=== PATIENT | male | born 1955 | race Caucasian/White ===

== ENCOUNTER 2019-12-23 12:29 | Inpatient (IN) | payer OTHER ==
[~2019-12-23] VITALS: Ht 182.9 cm; Wt 91.6 kg
--- NOTE | ~2019-12-23 | O ---
[facility] [place] [address] OPERATIVE REPORT Name: MARLO QUINTERO Room #: 217-P ADM IN M.R.#: [id number] Admission: 12/23/19 Attend Phys: Santos Coppola MD Discharge: Date of : 59 Report #: [id number] THIS REPORT FOR: cc: Dee Nick MD, Dee Dubon,Bneoit Tai MD ~ CC: Dee Coppola DATE OF SERVICE: 12/31/2019 PREOPERATIVE DIAGNOSES: Right foot gangrene, status post partial foot amputation, nonhealing wounds and status post revascularization of the right lower extremity. POSTOPERATIVE DIAGNOSES: Right foot gangrene, status post partial foot amputation, nonhealing wounds and status post revascularization of the right lower extremity. PROCEDURE PERFORMED: Right below-knee amputation. SURGEON: Benoit Dubon MD POLYSOM TECH: Elyse Sarah PA-C. ANESTHESIA: General. FLUIDS: 500 mL crystalloid. ESTIMATED BLOOD LOSS: Approximately 50 mL. SPECIMENS: Right lower extremity, below the knee. DESCRIPTION OF PROCEDURE: After proper identification of the patient and operative site in preoperative holding area, the operative site was signed by myself. The patient was initially seen by my partner, Dr. Miguel Angel Peralta and his physician retail assistant store manager, Betty Romero. Treatment plan was discussed. The patient is consented to a right below-knee amputation and due to OR availability, I was able to perform the procedure sooner for the patient. Questions were encouraged, all were answered. The expected postoperative course and fitting for a stump flight instructor, temporary prosthesis and eventual permanent prosthesis were reviewed with the patient. He felt comfortable proceeding with the above and wished to proceed. The patient was brought back to the operative suite after induction of satisfactory general anesthesia per LMA. Tourniquet was applied to the right upper thigh. The limb was sterilely prepped and draped in the usual manner. Extensive gangrenous changes were noted about the foot with [address] [address] OPERATIVE REPORT Name: MARLO QUINTERO Room #: 217-P [facility] IN ..#: [id number] Admission: 12/23/19 Attend Phys: Santos Coppola MD Discharge: Date of : 59 Report #: [id number] extensive skin loss below the ankle, nonhealing wounds were noted, and the skin incision was planned for the below-knee amputation. Approximately 5 inches below the level of the joint, anterior and posteriorly based fishmouth flaps were planned. The skin in this region appeared to be amenable to primary closure. The limb was elevated and exsanguinated by gravity, tourniquet was inflated. After the appropriate timeout, full-thickness skin flaps were developed. Anterolateral musculature was divided first; neurovascular structures were tied, ligated and cauterized. The nervous structures were retracted distally and sectioned proximally. The tibial osteotomy was performed with an anterior bevel, edges were chamfered and rasped and then the fibula was cut approximately 1.5 cm proximal to the tibia. This was bevelled as well. Sharp edges were removed. Posterior base musculature was divided and again neurovascular structures were identified, tied and cauterized. Soft tissues were contoured to provide a good stump for his prosthesis, and the tourniquet was deflated. Several small vessels required cauterization. Otherwise, there was excellent hemostasis with good punctate bleeding from the muscles and this appeared to be a good level amenable to healing. A [place] drain was placed deep. Fascia was closed with #1 and then 0 Vicryl, 2-0 Vicryl for the subcutaneous tissues, final skin closure was with 2-0 nylon in an interrupted manner with favian. Drain was pulled to ensure that it could be removed and a sterile compressive dressing and posterior splint were applied. At the time of dictation, he was still in the operative suite with anticipated discharge to the recovery room in stable condition. By: 1134 [id number] Benoit Dubon MD /barbara
[2019-12-23 16:00] VITALS: BP 99/44
[2019-12-23] MEDS ORDERED: VENTOLIN HFA 1818 GM INH (16:33)
[2019-12-23] MEDS ORDERED: BUMEX2 MG PO (16:36)
[2019-12-23] MEDS ORDERED: CALCIUM CARBON500 MG PO (16:38)
[2019-12-23] MEDS ORDERED: VITAMIN D31250 MCG PO (16:45)
[2019-12-23] MEDS ORDERED: PLAVIX 75 MG TA75 MG PO (16:46)
[2019-12-23] MEDS ORDERED: DIALYVITE 3,001 EACH PO (16:47)
[2019-12-23] MEDS ORDERED: NEURONTIN 300M300 M2 PO (16:48)
[2019-12-23] MEDS ORDERED: HUMULIN 70100 UNIT/2 SUBQ (16:49)
[2019-12-23] MEDS ORDERED: HYDROCODON-ACE1 EAC7 PO (16:50)
[2019-12-23] MEDS ORDERED: LEVO-T100 MCG PO (16:53)
[2019-12-23] MEDS ORDERED: DULERA 100 MCG/13 GM INH (16:57)
[2019-12-23] MEDS ORDERED: RENVELA0.8 GM PO (16:58)
[2019-12-23] MEDS ORDERED: SIMVASTATIN80 MG PO (16:59)
--- NOTE | 2019-12-23 19:34 | NUR ---
ASSUMED PT CARE THIS AFTERNOON UPON ADMISSION. PT BLOOD PRESSURE LOW, PAGED, AND MULTIPLE MESSAGES SENT REGARDING LOW BP. NO RESPONSE FROM . DANYELL NURSE ENDORSED. PT REFUSED REPORTING PAST MEDICAL HX, NIGHT NURSE MADE AWARE. NO ORDERS DURING THE SHIFT FOR PT MADE. DANYELL NURSE ENDORSED.
[2019-12-23 20:26] VITALS: BP 148/111
[2019-12-24 06:22] LABS: APTT 44.8 Seconds (24.5-32.8); INR 1.2; PROTIME 12.7 Seconds (9.3-11.4)
[2019-12-24 06:35] LABS: MCH 30.5 pg (26.0-34.0); MCHC 32.4 g/dL (28.0-37.0); MCV 94.1 fL (80.0-100.0); PLATELET COUNT 432 thou/uL (150-400); RBC 3.29 mil/uL (4.50-6.00); RDW 15.2 % (10.5-14.5); WBC 21.5 thou/uL (4.0-11.0)
[2019-12-24 07:07] LABS: ALBUMIN 1.6 g/dL (3.4-5.0); CALCIUM 7.9 mg/dL (8.5-10.1); CREATININE 10.9 mg/dL (0.7-1.3); MAGNESIUM 2.8 mg/dL (1.8-2.4); POTASSIUM 5.3 mmol/L (3.5-5.1); TOTAL BILIRUBIN 1.4 mg/dL (0.2-1.0); TOTAL PROTEIN 6.4 g/dL (6.4-8.2)
--- NOTE | 2019-12-24 07:42 | NUR ---
Pt. rested quietly at intervals during the night when checked on during frequent rounds. He did c/o some right shoulder pain and po pain med given (see emar) with some relief noted. Bed alarm is on.
--- NOTE | 2019-12-24 07:42 | EKG ---
[facility] [place] [address] ELECTROCARDIOGRAM REPORT Name: MARLO QUINTERO Room #: 463- ADM IN M.R.#: [id number] Admission: 12/23/19 Attend Phys: Santos Coppola MD Discharge: Date of : 59 Report #: [id number] THIS REPORT FOR: cc: Dee Nick MD, Allison Louise MD Lundgren,Maurice Mercedes MD [facility] ~ THIS REPORT FOR: //name// [facility] Test Date: 2019-12-23 Test Time: 19:29:35 Pat Name: MARLO QUINTERO Department: Room: 463 Gender: M Commutator Operator: Alva SILVA : 1955 Requested By: Santos Coppola Order Number: [id number] MD: Maurice Hurley Measurements Intervals [place] Rate: 60 P: OK: 199 QRS: -66 QRSD: 167 T: 82 QT: 539 QTc: 539 Interpretive Statements A-V dual-paced rhythm with some inhibition No further analysis attempted due to paced rhythm Baseline wander in lead(s) V1 No previous ECG available for comparison Electronically Signed On 12-24-2019 7:42:25 CDT by Maurice uHrley [email or web address] <ELECTRONICALLY SIGNED> By: Maurice Hurley MD, FAC 12/24/19 0742 28 28 Maurice Hurley MD, FAC /EPI
[2019-12-24 10:49] LABS: ABSOLUTE NEUTROPHILS 18.7 thou/uL (1.4-8.2); ANISOCYTOSIS SLIGHT
--- NOTE | 2019-12-24 13:13 | NUR ---
ASSUMED CARE OF PATIENT AT SHIFT NA. ASSESSMENT CHARTED. MEDS GIVEN PER MAR. VSS; PATIENT IS A&OX4. C/O PAIN ON R FOOT. ID PROVIDER SAW THIS PATIENT TODAY. WOUND SITE IS C/D/I. IV ABX INFUSING VIA R AC W NO ISSUES. PATIENT VOICES NOT BEING HAPPY W HIS TRANSFER. OT WORKED WITH THIS PATIENT THIS AM. APPETITE IS FAIR; PATIENT ENCOURAGED TO EAT MORE PROTEIN TO PROMOTE WOUND HEALING. AWAITING FURTHER ORDERS. FALL PRECAUTIONS IN PLACE, CALL LIGHT W/I REACH. WILL CONTINUE TO MONITOR AND FOLLOW PLAN OF CARE
--- NOTE | 2019-12-24 13:19 | NUR ---
PT ADMITTED RELATED TO FOOT INFECTION, INFECTED DIABETIC ULCER R FOOT. CM REVIEWED CHART AND SPOKE WITH CARE TEAM. CM CALLED AND SPOKE WIHT PT AT BEDSIDE THIS DAY. PT APPEARED TO BE A&O X4. CM ROLE INTRODUCED. PT TRANSFERED FROM [facility]. PT INDICATED HE LIVES IN A HOUSE WITH HIS SON AND HIS SON'S GF WITH NO STEPS TO ENTER AND 12 TO MAIN LIVING AREA. 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 PT INDICATED HIS ADDRESS IS [address] [place] [address] [place] [address] NOT THAT ADDRESS ON FILE CM NOTIFIED REGISTRATION. PT INDICATED HE HAD HH IN PAST. PT INDICATED HE PLANS TO RETURN HOME ONCE MEDICALLY STABLE. CM TO FOLLOW INDICATED WITH DC PLANNING. WC, ID, AND POD CONSULTED PT ON IV NAFCILLN.
--- NOTE | 2019-12-24 14:51 | NUR ---
ASSUMED CARE OF PATIENT THIS AM. ASSESSMENT CHARTED. MEDS GIVEN PER MAR. VSS. PATIENT IS ALERT TO HIMSELF, PLACE, BUT HAS SOME CONFUSION ON SITUATION AND TIME. PATIENT IS VERY PLEASANT AND COMPLIANT. IV ABX INFUSING W NO ISSUES. PHYSICIAN CLEARED THIS PATIENT TO GO HOME LATER TODAY. TRANSPORTATION SET UP FOR 1630. PATIENT WALKED AROUND UNIT W PT AND DID WELL. CURRENTLY SITTING ON CHAIR W EYES CLOSED. VOICES NO CONCERNS AT THIS TIME. FALL PRECAUTIONS IN PLACE. WILL CONTINUE TO MONITOR AND FOLLOW PLAN OF CARE
--- NOTE | 2019-12-24 20:08 | NUR ---
I AGREE WITH NURSING ASSESSMENT AND NURSING NOTE DONE BY FROYLAN/MENTAL HEALTH NURSE.
[2019-12-24 20:15] VITALS: BP 122/56
--- NOTE | 2019-12-24 21:54 | NUR ---
ASSUMED CARE OF PT AT 1900. PT IS A/O X4 AND IS UP WITH ASSIST. DRSGS TO RIGHT FOOT ARE C/D/I. PT HAD DIALYSIS TODAY AND PT APPEARS TIRED. PT STATES HE JUST WANTS SLEEP. VSS. AFEBRILE. DENIES ANY PAIN OR DISCOMFORT. MEDICATIONS GIVEN DIRECTED PER MAY. PT IS CURRENTLY LYING IN HIS BED WITH HOB AND LOWER EXTREMITIES ELEVATED AND APPEARS TO BE SLEEPING. CALL LIGHT IS WITHIN REACH. WILL CONTINUE TO MONITOR.
[2019-12-25 01:06] LABS: HEP B SURFACE Ab(ANTI-HBS Reactive (()); HEPATITIS B SURFACE AG Negative (Negative)
[2019-12-25 05:56] LABS: ABSOLUTE NEUTROPHILS 17.4 thou/uL (1.4-8.2); BASOPHILS 0.3 % (0.0-2.0); EOSINOPHILS 0.8 % (0.0-3.0); HEMATOCRIT 28.1 % (42.0-52.0); HEMOGLOBIN 9.2 gm/dL (14.0-18.0); LYMPHOCYTES 3.9 % (24.0-44.0); MCH 30.9 pg (26.0-34.0); MCHC 32.7 g/dL (28.0-37.0); MCV 94.5 fL (80.0-100.0); MONOCYTES 2.9 % (1.0-8.0); PLATELET COUNT 434 thou/uL (150-400); POLYS 92.1 % (36.0-66.0); RBC 2.97 mil/uL (4.50-6.00); RDW 15.6 % (10.5-14.5); WBC 18.9 thou/uL (4.0-11.0)
[2019-12-25 06:15] LABS: ALBUMIN 1.4 g/dL (3.4-5.0); ANION GAP 18 mmol/L (7-16); BUN 82 mg/dL (7-18); CALCIUM 7.5 mg/dL (8.5-10.1); CHLORIDE 94 mmol/L (98-107); CO2 21 mmol/L (21-32); GLUCOSE 209 mg/dL (74-106); POTASSIUM 5.1 mmol/L (3.5-5.1); SGOT 13 U/L (15-37); SGPT < 6 U/L (30-65); SODIUM 133 mmol/L (136-145); TOTAL BILIRUBIN 1.5 mg/dL (0.2-1.0)
[2019-12-25 06:29] LABS: CREATININE 9.4 mg/dL (0.7-1.3)
[2019-12-25 09:10] VITALS: BP 132/57
[2019-12-25 14:45] VITALS: BP 110/52
--- NOTE | 2019-12-25 15:52 | NUR ---
PT INDICATED THAT PT MIGHT BENEFIT FROM POST ACUTE CARE STAY UPON DC HE HAD SOME DIFFICULTY WITH AMBULATION. PT HAD ULTRASOUND OF ANKLE THIS AFTERNOON. CM MET WITH PT AT BEDSIDE THIS DAY AND DISCUSSED POST ACUTE SKILLED AND ACUTE LEVELS OF CARE. PT INDICATED HE WOULD BE INTERESTED IN BEING ASSESSED FOR POSSIBLE 5N ADMISSION. CM NOTIFIED 5N LIAISON. CM TO FOLLOW INDICATED WITH DC PLANNING.
[2019-12-25 20:15] VITALS: BP 126/45
--- NOTE | 2019-12-26 08:18 | HC ---
[facility] [place] [address] CONSULTATION Name: MARLO QUINTERO Room #: 463-P ADM IN M.R.#: [id number] Admission: 12/23/19 Attend Phys: Santos Coppola MD Discharge: Date of : 59 Report #: [id number] THIS REPORT FOR: cc: Dee Nick MD, Dee Day,Antoine Birch MD ~ CC: Dee Coppola REASON FOR CONSULTATION: End-stage renal disease. REASON FOR PRESENTATION: MSSA, right diabetic foot ulcer and cellulitis requiring higher level of care. HISTORY OF PRESENT ILLNESS: A 64-year-old with extensive past medical history including and not limited to diabetes mellitus and hypertension complicated by end-stage renal disease due to diabetes mellitus who has been maintained on hemodialysis for the last 2-1/2 to 3 years. [place]. He has been battling with right foot wound over the last couple of months and was transferred from [facility] after an initial evaluation to continue with his wound care and to obtain an ID consultation. The patient usually dialyzes every Sunday, Sunday and Sunday and I was consulted to manage his end-stage renal disease. He is utilizing a left-sided AV fistula. He usually runs for 4 hours with about 2.5-3 kilos of fluid removal every dialysis treatment. MEDICATIONS: 1. Albuterol. 2. Bumex. 3. Calcium carbonate. 4. Plavix. 5. Gabapentin. 6. Levothyroxine. 7. Sevelamer. PAST MEDICAL AND SURGICAL HISTORY: 1. Diabetes mellitus. 2. Hypertension. 3. Diabetic nephropathy, diabetic retinopathy, diabetic neuropathy. 4. Peripheral vascular disease. 5. Diabetic foot. 6. Left-sided AV fistula. FAMILY HISTORY: Significant for diabetes mellitus. SOCIAL HISTORY: No drug or alcohol abuse. [facility] [address] [place] [address] CONSULTATION Name: MARLO QUINTERO Room #: 463-P [facility] IN [facility].#: [id number] Admission: 12/23/19 Attend Phys: Santos Coppola MD Discharge: Date of : 59 Report #: [id number] ALLERGIES: None. REVIEW OF SYSTEMS: GENERAL: No fever or chills. CARDIOVASCULAR: No chest pain or palpitation. PULMONARY: No cough or hemoptysis. GASTROINTESTINAL: No nausea or vomiting. MUSCULOSKELETAL: As per the history of present illness. NEUROLOGICAL: No headache, no dizziness. PHYSICAL EXAMINATION: VITAL SIGNS: Temperature 37.3, blood pressure 148/101, pulse rate is 61. HEAD AND NECK: No jugular venous distention. CHEST: No crackles. CARDIOVASCULAR: No rub. ABDOMEN: Soft. LOWER EXTREMITIES: No edema on the left side. There is a definitive edema on the right side. Dressing is applied over his right foot area. I did not expose the wounds; however, there does seem to be some ischemic changes distally on his toes. LABORATORY DATA: Hemoglobin is 21.5, platelet is 432. Sodium is 134, potassium 5.3. ASSESSMENT, IMPRESSION AND PLAN: 1. End-stage renal disease. 2. Hyponatremia. 3. Hyperkalemia. 4. Diabetic foot ulcer. 5. Peripheral vascular disease. 6. Arrangement will be made for the patient to have his usual hemodialysis every Sunday, Sunday and Sunday. 7. ID consultation. 8. Workup for osteomyelitis. 9. Resume his dialysis related medications. <ELECTRONICALLY SIGNED> By: Antoine Day MD 12/26/19 0818 0843 2 Antoine Day MD /nt
[2019-12-26 11:50] VITALS: BP 128/57
--- NOTE | 2019-12-26 14:15 | NUR ---
Received awake on bed. Due medications given as prescribed, able to swallow meds w/o difficulty. On room air. Vital signs stable. On telemetry; AV paced; no complains of chest pain, crushing sensation and heaviness. On renal diet- tolerating well; no nausea, no vomiting and no abdominal pain noted. On blood sugar monitoring; taken and recorded accordingly; omitted pt's insulin- he has been refusing to eat, at risk for hypoglycemia; offered snacks- refused. Dialysis, --; a/w dialysis nurse. With SL at R AC, intact and flushing well; on IV antibiotics. Falls bundle in place. Assisted in ADLs. Complained of pain, due PRN pain meds given as prescribed. R foot dressing in place- changed today; tolerated well; photo taken. ZAHIDA and Anderson sánchez requested Dr Oneal to be contacted re: duration of antibiotic- As per Dr Oneal, approximately 4-6wks- relayed information to both ZAHIDA and Anderson sánchez. To continue monitoring patient.
[2019-12-26 15:08] VITALS: BP 121/57
[2019-12-26 15:57] VITALS: BP 110/81
[2019-12-26 20:30] VITALS: BP 133/50
[2019-12-27 06:04] VITALS: BP 122/50
[2019-12-27 07:30] VITALS: BP 108/46
[2019-12-27 13:00] VITALS: BP 102/50
[2019-12-27 16:47] VITALS: BP 106/49
--- NOTE | 2019-12-27 20:28 | NUR ---
Received awake on bed. Due medications given as prescribed. A+Ox4. On room air. Vital signs stable. On Renal diet- encouraged to eat and drink, supplements prescribed; pt instructed how to order alternative menu. On telemetry; AV paced; no complains of chest pain, crushing sensation and heaviness. No nausea, no vomiting and no abdominal pain noted. On blood sugar monitoring- taken and recorded accordingly; with sliding scale insulin prescribed. Dialysis M-W-F, dialysis access L upper arm- dressing C/D/I. With R AC SL- intact and flushing well; resited at R Hand. With L foot dressing in place- C/D/I- changed by Dr Rizvi today. Assisted in ADLs. Falls bundle in place. To continue monitoring patient. Contient of bowel and bladder. Pt initially upset re: plan of care and doctors having different plan- talked to him and Dr Eastman informed as well, pt settled and calmed down. Seen by Dr Avendaño and had long conversation with him, Ortho consult placed for BKA- called in consult and talked to RYANNE Romero, Covid swab ordered- done; NPO post midnight. Dr Rizvi saw patient and consulted IR- for Aortogram- JED Dugan called, informed him that podiatry consulted ortho for BKA tomorrow, asked her if to clarify with Ortho re: plans, she said she'll call Dr Bills re: plan; JED Dugan called back and after speaking to Dr Bills, will do Aortogram on Sunday, possible push back BKA on other day. Pt updated re: plans. Ortho wanted to have clearance from Dr Eastman- informed physician, consult for Dr Butcher called(cardiology)- will see patient tomorrow. CBG of 492 pre-dinner relayed to Dr Eastman, additional 8units ordered on top of sliding scale(one time order_- given as prescribed. Informed night RN to recheck blood sugar. Pt updated re: procedures and plan of care, agreeable on having aortogram then BKA. Called Ortho RYANNE Medina and clarified re: plans, she said to let patient have aortogram first then plan for BKA. Pt requested for his designated visitor to be changed, he said that Ofelia(daughter) has disabilities where she could not visit him, explained to pt visiting protocol and he got upset, called supervisor coffee Catherine and explained to her; Pt's son called and confirm information re: Ofelia, he confirmed; as per Jeff sup may change to pt's ex as requested-done. To continue monitoring patient
[2019-12-27 20:53] VITALS: BP 121/42
--- NOTE | 2019-12-28 02:14 | NUR ---
ASSUMED CARE OF PT AT 1900. PT IS A/O X4 AND IS UP WITH ASSISTANCE X2 TO THE BSC. PT STATES HE IS FEELING MUCH BETTER TODAY THAN HE HAD IN RECENT DAYS. BS WAS ELEVATED IN THE 400'S. NOTIFIED JET WIPER. ORDERS GIVEN FOR ONE TIME EXTRA DOSE OF SLIDING SCALE INSULIN. BS LOWERED BUT NOT WITHIN NORMAL RANGE. JET WIPER STATES SHE IS PUTTING IN A CONSULT WITH ENDOCRINOLOGY FOR POSSIBLE NEED FOR LONG ACTING INSULIN TO BE ADDED TO PT PLAN OF CARE. DRSGS TO RIGHT FOOT WERE REPLACED TODAY. DRSGS ARE C/D/I AT THIS TIME. PT IS LYING IN HIS BED AND APPEARS TO BE SLEEPING. FALL PRECAUTIONS ARE IN PLACE, CALL LIGHT IS WITHIN REACH. WILL CONTINUE TO MONITOR.
[2019-12-28 08:01] VITALS: BP 128/49
--- NOTE | 2019-12-28 15:15 | NUR ---
Received awake on bed. Due medications given as prescribed, able to swallow meds w/o difficulty. On room air. Vital signs stable. On telemetry; AV paced; no complains of chest pain, crushing sensation and heaviness. On renal diet- tolerating well; no nausea, no vomiting and no abdominal pain noted; encouraged and assisted in eating and drinking. On blood sugar monitoring- taken and recorded accordingly; with sliding scale insulin ordered- given as prescribed. Dr Eastman requested to call pt's pharmacy to verify re: long acting insulin dosage- tried to call pt's pharmacy 2x and they kept hanging the call. Dialysis patient, M-W-F; dialysis personnel called this AM to inform that pt is scheduled tomorrow- informed them as well that pt is scheduled for aortogram, unsure of what time. R foot dressing in place- changed; tolerated well. With R hand SL- intact and flushing well- on IV antibiotics. Complained of pain, due PRN pain meds given as prescribed. Pt reminded re: NPO post midnight; encouraged to eat. To continue monitoring patient.
[2019-12-28 16:03] VITALS: BP 102/48
[2019-12-28 20:00] VITALS: BP 97/47
[2019-12-29] VITALS (8 sets, daily range): BP systolic 125–139; BP diastolic 37–60
--- NOTE | 2019-12-29 02:40 | NUR ---
ASSUMED CARE OF PT AT 1900. PT IS A/O X4 AND IS UP X2 TO THE BSC. DENIES ANY C/O PAIN OR DISCOMFORT. PT STATES HE IS VERY TIRED TODAY AND JUST WANTS TO SLEEP. GROUPED CARES TOGETHER TO DISTURB PT LESS TO ALLOW FOR SLEEP. PT IS NPO OF MIDNIGHT AWAITING PROCEDURE TOMORROW. AV PACED ON THE MONITOR. DRSGS TO RIGHT FOOT ARE C/D/I. FALL PRECAUTIONS ARE IN PLACE, CALL LIGHT IS WITHIN REACH. WILL CONTINUE TO MONITOR.
[2019-12-29 06:11] LABS: HEMATOCRIT 28.4 % (42.0-52.0); HEMOGLOBIN 9.2 gm/dL (14.0-18.0); MCHC 32.4 g/dL (28.0-37.0); MCV 92.7 fL (80.0-100.0); RBC 3.06 mil/uL (4.50-6.00); RDW 16.5 % (10.5-14.5); WBC 15.4 thou/uL (4.0-11.0)
[2019-12-29 06:24] LABS: CALCIUM 7.2 mg/dL (8.5-10.1); CREATININE 10.6 mg/dL (0.7-1.3); POTASSIUM 4.9 mmol/L (3.5-5.1)
--- NOTE | 2019-12-29 13:27 | NUR ---
CARE TEAM INDICATED THAT PT WAS GOING TO HAVE ARTERIOGRAM DONE THIS DAY. PT IS POD# 6 RAY AMPUTATION R 5TH AMD PARTIAL R 4TH. PT CONTINUES ON IV NAFCILLIN. ID INIDCATED THAT PT WILL NEED PROLONGED IV ABX. 5N HAD BEEN FOLLOWING FOR POSSILBE POST ACUTE CARE STAY ALTHOUGH IT SOUNDS THOUGH PT ISN'T CONFIDENT ABOUT HIS ABILITY TO ADMINISTER IV ABX IN THE HOME IF DURATION OF NEED IS LONGER THEN REHAB STAY. SNF MIGHT BE MORE APPROPRIATE. PT RESIDES IN [facility]. CM TO FOLLOW UP WITH TO DETERMINE POST ACUTE CARE PLACEMENT PREFERENCE. CARE TEAM INDICATED THAT PT IS TO TRANSFER TO 2N POST OP. CM TO FOLLOW INDICATED WITH DC PLANNING.
--- NOTE | 2019-12-29 16:36 | NUR ---
PT A&OX4, VSS, DENIES PAIN. PATIENT LEFT FLOOR FOR AORTOGRAM. PATIENT WILL HAVE DIALYSIS TOMORROW SUNDAY. PATIENT AV PACED. NO SIGNS OF DISTRESS. PATIENT MOVED TO CCU. ALL BELONGINGS TAKEN DOWN TO NEW ROOM.
--- NOTE | 2019-12-29 17:37 | NUR ---
5N CONSULT RECEIVED FOR Pt. Pt SEEN BY BOLA MERCADO NP. PER INFECTIOUS DISEASE PHYSICIAN DR. DAMON, Pt WILL REQUIRED PROLONGED IV ABX FOR INFECTION. PER DOCUMENTATION, Pt NOT CONFIDENT IN HIS ABILITY TO CONTINUE ABX ADMINISTRATION AT HOME UPON D/C FROM A REHAB UNIT THEREFORE APPEARS TO BE BETTER CANDIDATE FOR SNF. THANK YOU FOR THIS REFERRAL.
--- NOTE | 2019-12-29 19:29 | NUR ---
ASSUMED CARE POST LERO. PT ALERT X4, FROM HOME. LEFT GROIN SIGHT C/D/I. RIGHT FOOT BLACKEN TOES UNABLE TO WIGGLE OR FEEL. PT INDICATED HE THE RIGHT FOOD MAY BE OPERATED ON. PT OFF LEFT LEG IMMOBILIZED 1914. DENIES SOB. WHEN STABEL WILL DC TO SNF FOR IV MEDS.
--- NOTE | 2019-12-29 19:37 | HC ---
[facility] [place] [address] CONSULTATION Name: MARLO QUINTERO Room #: 217-P ADM IN M.R.#: [id number] Admission: 12/23/19 Attend Phys: Santos Coppola MD Discharge: Date of : 59 Report #: [id number] THIS REPORT FOR: cc: Dee Nick MD, Theo Lam MD, MD ~ CC: Dee Coppola DATE OF SERVICE: 12/24/2019 CHIEF COMPLAINT: Right lateral foot wound. HISTORY OF PRESENT ILLNESS: This is a 64-year-old male patient with a history of end-stage renal disease and diabetes mellitus, who was admitted at [facility] [place] with MSSA diabetic foot ulceration and cellulitis. He was admitted on 12/17/2019. He went to the operating room for operative debridement by Dr. Farrukh Avendaño. He was started on IV nafcillin. The infectious portion; however, was not improving and since Infectious Disease consultation was not available, he was transferred here for further treatment and a higher level of care. The patient states he has some pain in the right foot. He is normally seen in an outpatient setting at [facility] and currently undergoing dialysis at the time of this evaluation. PAST MEDICAL HISTORY: Positive for history of end-stage renal disease, requiring dialysis; type 2 diabetes mellitus; hypertension; hyperlipidemia; diabetic peripheral neuropathy; chronic diastolic heart failure. SOCIAL HISTORY: Negative for alcohol use. He uses chewing tobacco and he is currently a daily smoker. No recreational drug use. MEDICATIONS: Include albuterol, Bumex, calcium carbonate, Plavix, Dialyvite, Neurontin, Humulin, Levo-T, Dulera, Renvela, simvastatin. ALLERGIES: No known drug allergies. FAMILY HISTORY: Noncontributory. REVIEW OF SYSTEMS: CONSTITUTIONAL: The patient denies fever, chills or weight loss. NEUROLOGICAL: The patient denies focal weakness. Does have peripheral neuropathy. ENT: The patient denies earache, nasal drainage or sore throat. CARDIOVASCULAR: The patient denies chest palpitations or diaphoresis. PULMONARY: The patient denies cough or shortness of breath. GASTROINTESTINAL: The patient denies nausea, vomiting, diarrhea or abdominal [address] [address] CONSULTATION Name: MARLO QUINTERO Room #: 217-P [facility] IN [facility].#: [id number] Admission: 12/23/19 Attend Phys: Santos Coppola MD Discharge: Date of : 59 Report #: [id number] pain. ORTHOPEDIC: The patient complains of pain, swelling, drainage from the right foot. Other systems in a 14-point review of systems are negative. PHYSICAL EXAMINATION: VITAL SIGNS: At this time include temperature 37.3, pulse 61, respiratory rate 18, blood pressure 140/111. GENERAL: This is a chronically ill-appearing male patient who appears to be in minimal distress. HEENT: Head normocephalic. Nose and throat clear. NECK: Supple. LUNGS: Clear. HEART: Regular. ABDOMEN: Soft. Bowel sounds present. EXTREMITIES: Examination of the lower extremities demonstrates what appears to be a surgical wound involving the lateral aspect of the right foot. There is a portion of the incision line that is closed and a portion that is open near what would have been the base of the fifth metatarsal anatomically. The surrounding area is significantly erythematous, tender and warm consistent with an ongoing active cellulitis and wound infection. LABORATORY STUDIES: Sodium 134, potassium 5.3, chloride 95, CO2 of 20, BUN 95, creatinine 10.9, glucose 99. Albumin is very low at 1.6. INR is 1.2. White blood cell count 21.5, hemoglobin is 10.0. The sed rate is 131. CLINICAL IMPRESSION: 1. Diabetic foot ulceration with underlying osteomyelitis and ongoing wound infection, cellulitis of the right foot. He is status post surgical debridement. 2. End-stage renal disease, requiring dialysis. 3. Type 2 diabetes mellitus. 4. Severe protein-calorie malnutrition. RECOMMENDATIONS: At this point in time, Infectious Disease consultation will be undertaken. I have also contacted the patient's surgeon, Dr. Farrukh Avendaño who will continue to follow him here, who recommended continuation of the Aquacel Ag packing to the open area followed by a padded dressing of an ABD and Kerlix and Jones wrap to the right foot. We will recommend elevation and nonweightbearing status at this time. He will need ongoing intravenous antibiotic therapy, local wound care and aggressive nutritional support. [address] [address] CONSULTATION Name: MARLO QUINTERO Room #: 217-P [facility] IN M.R.#: [id number] Admission: 12/23/19 Attend Phys: Santos Coppola MD Discharge: Date of : 59 Report #: [id number] I appreciate being asked to see the patient in consultation. <ELECTRONICALLY SIGNED> By: Theo Lundberg MD 12/29/19 [id number] Theo Lundberg MD /nt
[2019-12-30 04:25] VITALS: BP 131/45
--- NOTE | 2019-12-30 06:37 | NUR ---
PLAVIX GIVEN LAST NIGHT.L GROIN DRESSING C/D/I.UP TO THE BEDSIDE COMMODE X 1 ASSIST.LARGE BM AT THE BEGINNING OF THE SHIFT.MONITOR SHOWS AV PACED RHYTHM.POC CONTINUED.
[2019-12-30 10:54] LABS: HEMATOCRIT 30.5 % (42.0-52.0); HEMOGLOBIN 9.9 gm/dL (14.0-18.0); MCH 30.1 pg (26.0-34.0); MCHC 32.7 g/dL (28.0-37.0); RBC 3.31 mil/uL (4.50-6.00); RDW 16.3 % (10.5-14.5); WBC 19.9 thou/uL (4.0-11.0)
--- NOTE | 2019-12-30 11:30 | HC ---
[facility] [place] [address] CONSULTATION Name: MARLO QUINTERO Room #: 217-P ADM IN M.R.#: [id number] Admission: 12/23/19 Attend Phys: Santos Coppola MD Discharge: Date of : 59 Report #: [id number] THIS REPORT FOR: cc: Dee Nick MD, Jarek Beavers MD, MD ~ CC: Dee Coppola DATE OF SERVICE: 12/29/2019 ENDOCRINE CONSULTATION NOTE CONSULTING PHYSICIAN: Dr. Cifuentes. REASON FOR CONSULTATION: Uncontrolled type 2 diabetes mellitus. HISTORY OF PRESENT ILLNESS: This is a 64-year-old male patient whose medical background is significant for multiple medical issues including type 2 diabetes mellitus, hypertension, and hyperlipidemia. The patient has been dealing with a nonhealing right foot ulcer for the past year and has undergone extended periods of hyperbaric oxygen treatment as well as multiple cycles of antibiotics. Eventually, he was transferred from [facility] due to the same issue. The patient has had type 2 diabetes mellitus for over 30 years and has been most recently maintained on a regimen of Human R insulin at a dose of 7 units before meals in addition to NPH insulin at a dose of 40 units b.i.d. The patient describes blood glucose levels that are mostly elevated in the vicinity of 300-400 mg/dL, but with occasional blood glucose values that can be lowered; however, without severe hypoglycemia. The patient is not aware of complications pertaining to diabetic retinopathy and has only minimal issues with numbness, tingling and other features of neuropathy involving his feet and hands. However, he does have end-stage renal disease and has been on hemodialysis for over 2 years three times a week. He is not aware of previous episodes of coronary artery disease or CVAs in the past. Also, he is hypothyroid and has needed thyroid hormone replacement therapy for over 20 years. He has been on a stable dose of levothyroxine 125 mcg daily, which he tolerates well. He denies issues with palpitations, anxiety, or significant body weight changes. The patient is known to have hypertension and is maintained on Bumex 2 mg b.i.d. He is also hyperlipidemic and is maintained on simvastatin 40 mg at bedtime. REVIEW OF SYSTEMS: [address] [address] CONSULTATION Name: LEONMARLO Carlito Room #: 217-P [facility] IN .R.#: [id number] Admission: 12/23/19 Attend Phys: Santos Coppola MD Discharge: Date of : 59 Report #: [id number] CONSTITUTIONAL: Fatigue, tiredness. No fever, chills or body weight changes. HEENT: Negative for sore throat, sinus pain or ear drainage. PULMONARY: Negative for shortness of breath, cough or hemoptysis. CARDIAC: Negative for chest pain, palpitations, syncope or presyncope. GASTROINTESTINAL: Negative for abdominal pain, nausea, vomiting or changes in bowel movement frequency. NEUROLOGY: Intermittent issues with numbness and tingling over both lower extremities and upper extremities. No loss of consciousness or seizure activity. DERMATOLOGY: Nonhealing right foot ulcer and darkening of all right toes. Otherwise, his review of systems noncontributory other than those mentioned in HPI. PAST MEDICAL HISTORY: 1. Type 2 diabetes mellitus. 2. Hypertension. 3. Hyperlipidemia. 4. Hypothyroidism. 5. End-stage renal disease, on hemodialysis for 2-1/2 years. 6. Peripheral diabetic neuropathy. 7. Peripheral arterial disease. 8. History of chronic diastolic heart failure. 9. History of osteomyelitis of the right foot. OUTPATIENT MEDICATIONS: Include albuterol q. 4 hours p.r.n., Bumex 2 mg b.i.d., calcium carbonate 300 mg q. 4 hours p.r.n., vitamin D3 2000 units daily, Plavix 75 mg daily, gabapentin 300 mg daily, NPH insulin 40 units b.i.d. and Human R insulin 7 units t.i.d. a.c. , hydrocodone q. 6 hours p.r.n., levothyroxine 125 mcg daily, simvastatin 40 mg at bedtime. ALLERGIES: No known drug allergies. FAMILY HISTORY: Noncontributory. SOCIAL HISTORY: The patient denies use of tobacco, alcohol or illicit drugs. He lives with his son, his son's girlfriend and their children. PHYSICAL EXAMINATION: GENERAL: Pleasant male patient who is not in apparent pain or distress. VITAL SIGNS: Blood pressure is 137/60 mmHg, heart rate is 61 beats per minute, respirations 13 per minute, temperature 36.7 degrees Celsius. CONSTITUTIONAL: He is lying in bed supine, appears comfortable, not in apparent distress. HEENT: Anicteric sclerae. Intact extraocular motions. NECK: Supple, without JVD, carotid bruits or lymphadenopathy. I do not [facility] [address] [place] [address] CONSULTATION Name: MARLO QUINTERO Room #: 217-P ADM IN [place].#: [id number] Admission: 12/23/19 Attend Phys: Santos Coppola MD Discharge: Date of : 59 Report #: [id number] appreciate thyromegaly. CHEST: Noted for good air entry bilaterally with scattered rales. HEART: Regular rate and rhythm without murmurs or gallops. ABDOMEN: Soft, lax. No guarding. Active bowel sounds. EXTREMITIES: Lower extremity exam is noted for his right foot wrapped in a dressing with gangrenous changes involving all right toes. I do not appreciate pedal pulses. There is no lower extremity edema. NEUROLOGICALLY: Awake, alert and oriented to time, place and person. The remainder of his examination is nonfocal other than for sensory deficits peripherally. PSYCHIATRIC: Pleasant, interactive. Normal mood and affect. Normal thought process. LABORATORY RESULTS: Blood glucose values for a good part of his hospital stay have been over 200 mg/dL and peaked at 497 mg/dL on 12/27/2019. His fasting blood glucose today is at 88 mg/dL. Otherwise, sodium 135, potassium 4.9, chloride 96, CO2 of 22, anion gap 17, BUN 92, creatinine 10.6, glucose 117, AST 13, calcium 7.2, magnesium 2.8, alkaline phosphatase 145, ALT less than 6, total protein 6.0, albumin 1.4, EGFR 5. CRP 511.8, INR 1.2. White blood count 15.4, hemoglobin 9.2, hematocrit 28.4, platelets 601. ASSESSMENT AND PLAN: 1. Type 2 diabetes mellitus. The patient seems to have a poorly controlled baseline despite a fairly large insulin requirement. I will obtain a hemoglobin A1c to better understand this overall outlook. Here in the hospital, the patient has been predominantly hyperglycemic, but had a distinct response to initiating Lantus insulin at a low dose of 10 units q.a.m. started yesterday. Given this intense response, I will tone that down to 8 units daily and maintain Humalog supplemental scale coverage with insulin to be used only if he exceeds 200 mg/dL. I would have a low threshold to utilize Tradjenta for better post-prandial control, but I will wait until he is done with his anticipated amputation procedure. Maintain blood glucose monitoring a.c. and at bedtime. 2. Hypothyroidism. The patient has longstanding hypothyroidism and has been maintained on a stable dose of levothyroxine 125 mcg daily. I will obtain free T4 and TSH levels to ensure the adequacy of this dosage. 3. Diabetic foot ulcer. The patient has been dealing with nonhealing right foot ulcers and currently has significant osteomyelitis changes. He is being considered for a below-knee [address] [place] [address] CONSULTATION Name: LEONMARLO G Room #: 217-P ADM IN M.R.#: [id number] Admission: 12/23/19 Attend Phys: Santos Coppola MD Discharge: Date of : 59 Report #: [id number] amputation to be done later today. Continue the current antibiotic coverage. 4. Hypertension. The patient's level of blood pressure control is adequate, continue the current regimen. I have reviewed the patient's clinical care notes, laboratory data, and other related pertinent clinical information for over 35 minutes in addition to my encounter time with him. I certainly appreciate this consultation by Dr. Cifuentes. <ELECTRONICALLY SIGNED> By: Jarek Garcia MD 12/30/19 1130 1125 [id number] Jarek Garcia MD /nt
--- NOTE | 2019-12-30 19:56 | NUR ---
RECEIVED PT'S CARE AROUND 0730; PT. ON BED; ALERT; RECEIVING DIALYSIS; DURING AM ASSESSMENT AOX4; C/O PAIN OVER R. FOOT; SOFT BP; PRN PAIN MEDICATION HOLD DURING DIALYSIS; AM MEDICATION GIVEN LATE; SOME AM MEDICATIONS HOLD DUE TO DIALYSIS AND CLOSE TO NEXT DOSE; BG NOT ASSESS DURING LUNCH DUE TO LATE BREAKFAST; NO BG CHECKED BEFORE EATING; INSULIN REPLACED DURING THE EVENING; AV-VPACED; DURING THE LATE EVENING PT. C/O IV PAIN; ATTEMPTED IV X2; SECOND TIME PULLED ARM; PRN PAIN MEDCATION GIVEN; PHYSICIANS UPDATED ABOUT POC; PER DR. GORDON OK NOT TO DO WOUND CARE DUE TO SCHEDULE R. BKA ON 12/31/2019; ASSESSMENT CHARGED; FOLLOWING POC; PASSED ON REPORT;
[2019-12-30 20:14] VITALS: BP 95/52
[2019-12-31] VITALS (8 sets, daily range): BP systolic 124–178; BP diastolic 49–71
--- NOTE | 2019-12-31 08:08 | NUR ---
ASSUME CARE 1900. PT/VITALS STABLE. INTERMITTENT RIGHT FOOT PAIN. POOR ACTIVITY TOLERANCE. NO DISTRESS NOTED THROUGH THE NIGHT. ADEQUATE REST NOTED THROUGH THE NIGHT. CLINICAL RESEARCH SCIENTIST SINCE ,IDNIGHT EXCEPT FOR MEDS WITH SIPS OF WATER TO TAKE MEDS WITH. PLAN IS FOR BKA TODAY. WILL CONTINUE TO MONITOR AND FOLLOW WITH POC
[2019-12-31 09:45] LABS: CALCIUM 6.8 mg/dL (8.5-10.1); POTASSIUM 4.8 mmol/L (3.5-5.1)
[2019-12-31 09:48] LABS: CREATININE 8.5 mg/dL (0.7-1.3)
--- NOTE | 2019-12-31 12:43 | HC ---
[facility] [place] [address] CONSULTATION Name: MARLO QUINTERO Room #: 217-P ADM IN M.R.#: [id number] Admission: 12/23/19 Attend Phys: Santos Coppola MD Discharge: Date of : 59 Report #: [id number] THIS REPORT FOR: cc: Dee Nick MD, Farrukh Retana MD, DPM ~ CC: Dee Coppola DATE OF SERVICE: 12/27/2019 CHIEF COMPLAINT: Followup of osteomyelitis to right foot, status post cuboid debridement. Surgical pathology was positive for osteomyelitis, which grew MSSA. He is on parenteral nafcillin with good tolerance. He feels somewhat better today, but still generalized malaise. However, he has remained afebrile. No new labs for review. PHYSICAL EXAMINATION: VITAL SIGNS: Temperature 97.6, pulse 53, respirations 12, blood pressure 108/46. EXTREMITIES: His foot is progressively turning cyanotic. The right first, second and third toes are cyanotic with the cyanosis extending proximally to the medial mid foot region. The foot is cold to the touch with no capillary refill to the distal 50%. There is persistent erythema to the dorsal mid and medial foot with cellulitis. The wound to the lateral cuboid has some fibronecrotic tissue with palpable bone. Overall, the foot is clinically worse than since last night and does not appear salvageable. IMPRESSION: Osteomyelitis, peripheral arterial disease, acute vascular embarrassment to right foot, type 2 diabetes mellitus, end-stage renal disease, on dialysis. PLAN: In my opinion, the foot is not salvageable. He requires a below-knee amputation. I discussed this with the patient in depth and I will consult Orthopedic Surgery to discuss this with him. <ELECTRONICALLY SIGNED> By: Farrukh Avendaño DPM 12/31/19 1243 1236 1255 Farrukh Avendaño DPM /nt
--- NOTE | 2019-12-31 12:43 | HC ---
[facility] [place] [address] CONSULTATION Name: MARLO QUINTERO Room #: 217-P ADM IN M.R.#: [id number] Admission: 12/23/19 Attend Phys: Santos Coppola MD Discharge: Date of : 59 Report #: [id number] THIS REPORT FOR: cc: Dee Nick MD, Farrukh Retana MD, DPM ~ CC: Dee Coppola DATE OF SERVICE: 12/26/2019 CHIEF COMPLAINT: The patient was transferred from [facility] to [place] for continued care and Infectious Disease management. Prior to the time of transfer, he was febrile with questionable pacemaker lead infection. It is thought by ID that his right foot is the likely source of septicemia. He underwent resection of a portion of the right cuboid and fourth metatarsal and surgical pathology revealed prominent osteomyelitis of the right cuboid that was submitted. It is possible that the remaining portion of the cuboid is also infected. The surgical soft tissue cultures grew methicillin-sensitive Staph aureus and the right cuboid bone culture grew methicillin-resistant Staphylococcus epidermidis. He is currently on parenteral nafcillin 2 grams q. 4 hours. He does not feel well with significant malaise. He has been afebrile since transfer to [facility]. LABORATORY DATA: WBC 18.9, RBC 2.97, hemoglobin 9.2, hematocrit 21.8, platelets 434. BUN 82, creatinine 9.4, glucose 209. Albumin 1.4. CRP 511.8. PHYSICAL EXAMINATION: There is significant erythema to the right dorsal medial foot, somewhat decreased since hospital transfer. The postoperative wound over the lateral cuboid has a low-grade erythema with no expressible drainage. The cuboid and lateral fourth metatarsal are probeable with a sterile curette. I am unable to express any drainage or purulence. The right hallux and second toe have a purple discoloration that was not present at the time of surgery. His foot is warm proximally and cool distally. No fluctuance or crepitation to the dorsal foot or signs of subcutaneous abscess. IMPRESSION: Osteomyelitis, right foot, cuboid and possibly fourth metatarsal with cellulitis. Type 2 diabetes mellitus, peripheral arterial disease, end-stage renal disease on dialysis. PLAN: I do not feel there is any surgical salvage of this foot at this point. He is already missing the entire fifth metatarsal and a significant portion of [address] [address] CONSULTATION Name: MARLO QUINTERO Room #: 217-P ADM IN [facility].#: [id number] Admission: 12/23/19 Attend Phys: Santos Coppola MD Discharge: Date of : 59 Report #: [id number] the fourth. I feel below-knee amputations in his best interest at this point. I will discuss with the wound care doctors and Infectious Disease. <ELECTRONICALLY SIGNED> By: Farrukh Avendaño DPM 12/31/19 1243 1832 [id number] Farrukh Avendaño, JOSSUE /barbara
--- NOTE | 2019-12-31 16:27 | NUR ---
PT ALERT AND ORIENTED. HAD RIGHT BKA THIS MORNING. VSS. DENIED HAVING PAIN OR DISCOMFORT. NO CONCERNS AT THIS TIME.
[2020-01-01] VITALS (11 sets, daily range): BP systolic 144–172; BP diastolic 55–79
[2020-01-01 06:07] LABS: HEMATOCRIT 25.4 % (42.0-52.0); HEMOGLOBIN 8.4 gm/dL (14.0-18.0); MCH 31.2 pg (26.0-34.0); MCHC 33.2 g/dL (28.0-37.0); RBC 2.7 mil/uL (4.50-6.00); RDW 16.8 % (10.5-14.5); WBC 10.3 thou/uL (4.0-11.0)
[2020-01-01 06:12] LABS: ALBUMIN 1.5 g/dL (3.4-5.0); PHOSPHORUS 10.5 mg/dL (2.5-4.9); POTASSIUM 5.2 mmol/L (3.5-5.1)
[2020-01-01 06:20] LABS: CREATININE 10.5 mg/dL (0.7-1.3)
--- NOTE | 2020-01-01 08:36 | NUR ---
ASSUMED PT CARE AT THE CHANGE OF SHIFT, PT IS AWAKE, ALERT AND ORIENTED, APACED ON THE MONITOR, C/O PAIN ON THE R STUMP, MEDICATION GIVEN PRN, ASSESSMENTS CHARTED, NPO AFTER MIDNIGHT, NO ACUTE DISTRESS NOTED; PASSED ON REPORT TO DAY NURSE
--- NOTE | 2020-01-01 14:52 | NUR ---
Pt has surgery yesterday s/p BKA and having arterogram on his other leg today. Pt is being reevaluated today by therapy and [facility] acute rehab. Pt will likely need 4more weeks of iv atb as well. Will need plan for outpt infusion or home infusion once dc'd from acute rehab. Will follow.
--- NOTE | 2020-01-01 18:19 | NUR ---
ASSESSMENT DOCUMENTED, NPO FOR MOST OF THE DAY AND INSULIN HELD PER PROTOCOL. MEDICATED FOR PAIN NEEDED. S/P LT LEG CATHED TODAY, RT GRION SITE D/C/I. AND WILL CONTINUE WITH POC.
[2020-01-02 00:50] VITALS: BP 152/55
--- NOTE | 2020-01-02 03:17 | NUR ---
PT CARE ASSUMED IWTH PT IN BED WATCHING TV AT 1900.PT IS A/O X3.PT SLEEPING MOST PART OF THE SHIFT.PT HAD ARTEROGRAM DONE YESTERDAY AND GROIN SITE DRESSING C/D/I.PT IS TELE APACE.PT ON 1L OF O2.PT IS ACCUCHECK ACHS AND DID NOT NEED INSULIN HS.IV ACCESS ON RT HAND WITH ANTIBIOTIC.PT PAIN MANAGED WITH NORCO AND MORPHINE.WILL CONTINUE TO MONITOR
[2020-01-02 05:06] VITALS: BP 153/52
[2020-01-02 09:26] VITALS: BP 167/69
[2020-01-02 12:01] LABS: HEMATOCRIT 26.1 % (42.0-52.0); HEMOGLOBIN 8.7 gm/dL (14.0-18.0); MCH 30.8 pg (26.0-34.0); MCHC 33.3 g/dL (28.0-37.0); MCV 92.6 fL (80.0-100.0); RBC 2.82 mil/uL (4.50-6.00); RDW 16.6 % (10.5-14.5); WBC 9.3 thou/uL (4.0-11.0)
[2020-01-02 12:15] VITALS: BP 148/59
[2020-01-02 16:35] VITALS: BP 146/55
--- NOTE | 2020-01-02 16:57 | NUR ---
ASSESSMENT CHARTED. PT ALERT AND ORIENTED. VSS. HAD DIALYSIS THIS AM. PRN PAIN MED GIVEN WITH PARTIAL RELIEF. NO CONCERNS AT THIS TIME. PROGRESSING WELL TOWARDS DISCHARGE GOAL.
--- NOTE | 2020-01-02 17:49 | NUR ---
Pt dialyzing again today to get him on our MWF schedule. Therapy evals attempted along with [facility] re[facility] eval. Pt requesting acute rehab referral at [facility] in [place] as it will be closer to home and he was there last year vs [facility]. Referral called to their liason Clementina Chris and she will look over his therapy notes and rehab medicine eval on Sunday. Clementina notes that their dialysis schedule is T TH Sat and therefore they could not accept him today or on the wkend due to having too many days without dialysis. Care team will need to coordinate his dialysis schedule with them if they can accept him. Pt encouraged to participate in therapy even on dialysis days. Pt will need approx 4 more weeks of iv atb and could hopefully do this per home infusion or outpt at [facility] once he is dc'd home from rehab.
[2020-01-02 20:20] VITALS: BP 134/64; BP 135/59
--- NOTE | 2020-01-03 02:21 | NUR ---
NO EVENTS OVERNIGHT. PT ALERT AND ORIENTED. SR ON THE MONITOR. VITALS STABLE DENIES PAIN. NO NAUSEA VOMITING OR CHEST PAIN REPORTS. 1 L O2 NC MAINTAINED. NEW IV STARTED IN THE RIGHT FOREARM. WILL CONTINUE TO MONITOR.
[2020-01-03 04:45] VITALS: BP 154/65
[2020-01-03 09:00] VITALS: BP 165/59
--- NOTE | 2020-01-03 14:59 | NUR ---
Received awake on bed. Due medications given as prescribed, able to swallow meds w/o difficulty. On O2 1lpm via nasal cannula- as per Renal, may discontinue O2- rechecked O2 sat: 97% on room air. A+Ox4. On MS, not on telemetry; no complains or signs of chest pain, crushing sensation and heaviness. Assisted in ADLs. Vital signs stable. On carb controlled diet- tolerating well; no nausea, no vomiting and no abdominal pain noted. On blood sugar monitoring- taken and recorded accordingly. On dialysis --, dialysis fistula at L upper arm- dressing with dried blood- changed today. With SL at R FA-on IV antibiotics. With R Leg BKA- dressing C/D/I, seen, examined and dressing changed by Dr Rizvi at 1115am; tolerated well. Complained of pain, due PRN pain meds given as prescribed. To continue monitoring patient. Still a/w discharge disposision- SNF/Rehab as per CM.
[2020-01-03 16:10] VITALS: BP 139/49
--- NOTE | 2020-01-04 01:50 | NUR ---
RECENT RIGHT BKA WITH PROTECTOR ON, APPRECIATES HAVING IT ELEVATED ON SINGLE PILLOW. RENNY AV FISTULA HAS POSITIVE BRUIT AND THRILL, OOZING BLOOD FROM SINGLE DOT ON ITS UPPER HALF, PATIENT STATES THIS HAPPENS FREQUENTLY AFTER DIALYSIS, FRESH GUAZE APPLIED AND PRESSURE HELD FOR 5 MINUTES TAKING CARE TO MAINTAIN BRUIT AND THRILL. RFA SALINE LOCK PATENT FOR Q 4 HOUR NAFCILLIN.
[2020-01-04 08:22] VITALS: BP 153/68
[2020-01-04 17:05] VITALS: BP 128/64
--- NOTE | 2020-01-04 18:18 | NUR ---
PATIENT HAS RESTED IN BED THROUGH THE DAY. WILL BE HAVING DIALYSIS IN AM. WILL CONT WITH PLAN OF CARE.
[2020-01-04 19:55] VITALS: BP 142/54
[2020-01-04 21:50] VITALS: BP 130/77
[2020-01-05 04:00] VITALS: BP 153/79
--- NOTE | 2020-01-05 04:22 | NUR ---
ASSUMED PT CARE AT 1900.PT DENIED PAIN SO FAR.DRSG TO HIS TACO GROIN AND R LEG C/D/I.L UPPER ARM FISTULA POSITIVE FOR THRILL AND BRUIT.PT LOOKING FORWARD TO BE DC TO REHAB.FALL PRECAUTIONS IN PLACE,CALL LIGHT WITHIN REACH.
--- NOTE | 2020-01-05 13:37 | NUR ---
on-going assessment: CM REVIEWED CHART. PATIENT IS GETTING DIALYSIS TODAY. APPEARS THE PLAN IS FOR PATIENT TO DISCHARGE TO [facility] PENDING THEIR ACCEPTANCE. CM HAS LEFT VM FOR [place] IN ADMISSIONS AT [facility] X[facility]. CM ALSO FAXED UPDATED CLINICAL AND AWAITING A CALL BACK. CM WILL CONTINUE TO FOLLOW.
[2020-01-05] MEDS ORDERED: ASPIR 8181 MG PO (16:05)
[2020-01-05] MEDS ORDERED: LANTUS SUBQ (16:06)
[2020-01-05] MEDS ORDERED: HUMALOG100 UNIT/1 SUBQ (16:06)
[2020-01-05] MEDS ORDERED: MEGESTROL ACETA40 MG PO (16:06)
[2020-01-05] MEDS ORDERED: NAFCILLIN 2 GM A2 G1 IV (16:08)
--- NOTE | 2020-01-05 16:23 | NUR ---
ON-GOING ASSESSMENT: CM REVIEWED CHART AND SPOKE WITH ATTENDING WHO STATES PATIENTS IS MEDICALLY STABLE TO DISCHARGE TO ACUTE REHAB. CM SPOKE WITH PATIENT AND HE STILL PREFERS [facility] IT IS CLOSED TO HIS HOME. CM CONTACTED NATASHA CANTU AT [facility] WHO STATES SHE SPOKE WITH THEIR PHYSICIAN AND THEY CAN ACCEPT HER TODAY. ZAHIDA SPOKE WITH DR. TOBIN WHO SPOKE WITH NEPHROLOGY WHO IS OK WITH PATIENT TRANSITIONING TO DIALYSIS FOR EVERY //SUN AND SINCE PATIENT GOT DIALYSIS TODAY AND ELECTROYLTES ARE OK PATIENT CAN SKIP A DAY AND WAIT UNTIL SUNDAY FOR DIALYSIS. [facility] STATES THEY WILL WATCH PATIENT. CM NOTIFIED PATIENT AND HIS SON OF DISCHARGE AND THEY ARE AGREEABLE WITH PLAN. [facility] DOES NOT PROVIDE TRANSPORTATION SO CM SPOKE WITH CM DIRECTOR AND WHEELCHAIR VAN HAS BEEN ARRANGED FOR [phone].CHART COPY WAS ORDERED. DISCHARGE PAPERWORK WAS FAXED TO [facility] AND CONFIRMED THEY RECEIVED IT. PT REPORTS NO FURTHER NEEDS FROM CM PRIOR TO DISCHARGE.
--- NOTE | 2020-01-05 17:06 | PATH ---
[facility] [address] [place] [address] PATHOLOGY RPT PROCEDURE Name: MARLO QUINTERO Room #: 440-P ADM IN M.R.#: [id number] Admission: 12/23/19 Date of : 59 Discharge: Report #: [id number] Path Case #: [id number] [facility] Accession Number: [id number] . 01 Material submitted: . knee - RIGHT BKA. Modifiers: right . 01 Clinician provided ICD-10: I73.9 N18.6 . 01 Clinical history: . INFECTED DIABETEC FOOT ULCER DILATION OF RIGHT ANTERIOR TIBIAL ARTERY, PERC KAREN . 02 Diagnosis: Leg, right, below knee amputation: - Skin and subcutaneous tissue with ulceration, gangrenous necrosis as well as marked acute inflammation extending into bone. - Underlying bone with acute osteomyelitis. - Vessels showing calcific atherosclerosis as well as complete occlusion by thrombus at the margin. - Skin and soft tissue margins viable. - Bone margins viable and unremarkable. . (IUV:mml; 01/05/2020) QLM 01/05/2020 1630 Local . 02 Electronically signed: . Kika Byrd MD, Pathologist NPI- [id number] . 01 Gross description: . Received fresh labeled "Marlo Quintero, right BKA" is a below knee amputation specimen consisting of lower leg (36.2 x 13.0 x 7.3 cm) and foot (27.0 x 8.5 x 8.0 cm). The proximal skin and soft tissue margin is smooth and grossly viable and the tibia and fibula bone margins are smooth and consistent with surgical margins. The first through third toes are present. The fourth and fifth toes are absent, and a partially healed linear incision is present on the lateral aspect of the foot, extending from the third toe posteriorly, and measuring 13.7 x 2.5 cm. The incision displays surrounding morfin-brown discoloration/ulceration and multiple black plastic sutures. The first through third toes are pink-morfin and erythematous, with this area extending on to the medial and plantar foot, covering a total area of 19.5 x 7.0 x 6.3 cm. The notable areas are located at least 29.0 cm from the closest skin and soft tissue margin and 30.5 cm from the closest bone margin. The anterior and posterior tibial [address] [address] PATHOLOGY RPT PROCEDURE Name: MARLO QUINTERO Room #: 440-P [facility] IN M.R.#: [id number] Admission: 12/23/19 Date of : 59 Discharge: Report #: [id number] Path Case #: [id number] arteries are dissected from the specimen to reveal focal calcification with less than 10% stenosis. The dorsalis pedis artery displays focal calcification and surrounding edematous tissue. Upon sectioning, the bone below the lateral foot incision is easily cut in places, with calle-smart discoloration. The bone below the erythematous area on the first through third toes is red-pink and hemorrhagic. . Garageman sections are submitted as follows: A1 anterior and posterior tibial arteries at resection margin A2 cross sections of anterior tibial artery with calcifications/stenosis A3 cross-section of the posterior tibial artery with calcifications/stenosis A4 dorsalis pedis A5 skin and soft tissue margin A6-A7 tibial bone margin (decalcified) A8 fibula bone margin (decalcified) A9 incision with discoloration/ulceration on lateral aspect of foot A10 bone underlying incision with discoloration/ulceration on lateral aspect of foot (decalcified) A11-A12 sections of first through third toes and metatarsal portion of foot with discoloration A13 bone from first toe (decalcified) [place] [place] [facility] 01/01/2020 1705 Local . 02 Pathologist provided ICD-10: L97.919, I96, L98.9, M86.171, I70.201 . 02 CPT . 917801, [id number] Specimen Comment: A courtesy copy of this report has been sent to [phone] Specimen Comment: Report sent to Performed at: [address], [place] [id number] MD Jordi Griffin MD Phone: [phone] Performed at: [address] [id number] MD Kika Byrd MD Phone: [phone]
--- NOTE | 2020-01-05 17:37 | NUR ---
PT IS AOX4, VSS, NO C/O PAIN. DIALYSIS COMPLETED. BM SMEAR TODAY. IV D/C'D FROM R FA. DISCHARGE INSTRUCTIONS VERBALIZED TO PT. REPORT CALLED TO [facility] NURSE. TRANSPORT Rosamaria UGALDE PICKED UP.
== END 2020-01-05 17:42 | disposition short-term general hospital (02) | DRG 853 ==
LOC: 4W 12:29 → 2N 12-29 14:53 → 4S 01-03 18:17
PROVIDERS: Anesthesiology; Hospitalist; Internal Medicine; Internal Medicine Nephrology; Nurse Practitioner; Specialist; ADMIT Internal Medicine; ATTEND Internal Medicine
PROC: 04CP3ZZ Extirpation of Matter from Right Anterior Tibial Artery, Percutaneous Approach (ICD-10-PCS; principal; 2019-12-31)
PROC: 047N3Z1 Dilation of Left Popliteal Artery using Drug-Coated Balloon, Percutaneous Approach (ICD-10-PCS; principal; 2019-12-31)
PROC: 047P3ZZ Dilation of Right Anterior Tibial Artery, Percutaneous Approach (ICD-10-PCS; principal; 2019-12-31)
PROC: B4181ZZ Fluoroscopy of Bilateral Renal Arteries using Low Osmolar Contrast (ICD-10-PCS; principal; 2019-12-31)
PROC: 0Y6H0Z2 Detachment at Right Lower Leg, Mid, Open Approach (ICD-10-PCS; principal; 2019-12-31)
PROC: 04CN3ZZ Extirpation of Matter from Left Popliteal Artery, Percutaneous Approach (ICD-10-PCS; principal; 2019-12-31)
DX: A41.9 Sepsis, unspecified organism (principal); E43 Unspecified severe protein-calorie malnutrition; I50.33 Acute on chronic diastolic (congestive) heart failure; N18.6 End stage renal disease; L03.115 Cellulitis of right lower limb; E87.1 Hypo-osmolality and hyponatremia; E11.621 Type 2 diabetes mellitus with foot ulcer; I73.9 Peripheral vascular disease, unspecified; E11.22 Type 2 diabetes mellitus with diabetic chronic kidney disease; E11.65 Type 2 diabetes mellitus with hyperglycemia; E11.21 Type 2 diabetes mellitus with diabetic nephropathy; E87.5 Hyperkalemia; D63.8 Anemia in other chronic diseases classified elsewhere; D47.3 Essential (hemorrhagic) thrombocythemia; E03.9 Hypothyroidism, unspecified; Z20.828 Contact with and (suspected) exposure to other viral communicable diseases; Z99.2 Dependence on renal dialysis; Z68.27 Body mass index [BMI] 27.0-27.9, adult; Z79.4 Long term (current) use of insulin; Z79.899 Other long term (current) drug therapy
CPT/HCPCS: 10045; 10081; 10102; 32100; 50010; 50101; 50386; 53000; 56524; 56525; 56527; 57091; 57095; 57103; 57180; 62110; 62900; 70005